=== PATIENT | male | born 1975 | race Caucasian/White ===

== ENCOUNTER 2022-10-22 02:45 | Emergency (ER) | payer OTHER, SELFPAY ==
[2022-10-22] VITALS (14 sets, daily range): BP systolic 137–155; BP diastolic 69–80; PULSE 50–55; RESP 16; TEMP 35.6; O2SAT 93–97
--- NOTE | 2022-10-22 03:15 | CRLHL7_ITS ---
For Patients: As a result of the Cures Act, medical imaging exams and procedure reports are released immediately into your electronic medical record. You may view this report before your referring provider. If you have questions, please contact your health care provider. Indication: Palpitations Technique: View chest Comparison: None Findings/Impression: The lung apices are excluded from the study on the basis of patient positioning. Status post median sternotomy with cardiac valve replacement. Cardiomegaly. No focal infiltrate or effusion. No large pneumothorax. Increased kyphosis of the thoracic spine. Recommend additional frontal radiograph to include the lung apices. Apices. Dictated by Radha Lea MD @ 10/22/2022 4:21:16 AM (Electronically Signed)
[2022-10-22 03:31] LABS: Basophils Absolute Auto 0.05 K/uL (0.00-0.30); Basophils Percent Auto 0.7 % (0.0-3.0); Eosinophils Percent Auto 8.2 % (0.0-7.0); Hematocrit 40.1 % (37.0-53.0); Hemoglobin* 13.7 gm/dL (13.5-17.5); Immature Granulocytes Abs Auto 0.03 K/uL (0.00-0.30); Immature Granulocytes Pct Auto 0.4 %; Lymphocytes Absolute Auto 2.29 K/uL (0.90-2.90); Lymphocytes Percent Auto 33.4 % (20-44); Mean Corpuscular HGB Conc 34 gm/dL (32-36); Mean Corpuscular Hemoglobin 30 pg (26-34); Mean Corpuscular Volume 87 fL (80-100); Neutrophils Absolute Auto 3.37 K/uL (1.7-7.0); Neutrophils Percent Auto 49.3 % (42.0-72.0); Platelet Count* 269 K/uL (140-440); RDW Coefficient of Variation % 11.8 % (11.5-15.5); White Blood Count* 6.85 K/uL (4.50-11.00)
[2022-10-22 03:35] LABS: Slide Review Reflex No
[2022-10-22] MEDS: clonazePAM 0.5 MG TABLET PO (03:37)
--- NOTE | 2022-10-22 03:41 | ED_ITS ---
HPI - General Adult General Chief complaint: Anxiety Stated complaint: heart palpitations Time Seen by Provider: 10/22/22 02:50 Source: patient and family Mode of arrival: ambulatory Limitations: no limitations History of Present Illness HPI narrative: 47-year-old male with notable history of Marfan syndrome presents to the emergency department with palpitations and anxiety. No chest pain, no shortness of breath, no presyncope or dizziness. Patient has been struggling with anxiety for the past few months, specifically after about spring break which is early August. He has been diagnosed with an anxiety disorder in the past and it sounds like he was taking sertraline for a few months last year but reports that it seemed to cause increased anxiety, admittedly he did not follow up regularly with a trauma manager for this. When his symptoms started worsening, he attempted to be seen in the [facility] Emergency Department. Unfortunately was exceptionally busy that day and they did leave without being seen after about 6 hours. They were able to get a hold of [facility] and were connected for outpatient counseling which he started just a few days later and continues to attend. He was also prescribed a limited supply of lorazepam, stating that he ran out of this about a week and half ago. He gets symptoms of panic attacks probably about twice a week, always at night, typically waking him from sleep. Does have some anxiety during the day but no debilitating panic type symptoms. Denies intoxication, denies suicidal intent. Because of his significant cardiac history, he does worry that the palpitations could be tied to something medically but his overall impression is that this is related to mental health issues. His is present and helps fill in small gaps in his story for me. I know this couple from high school activities with our children. No fever or recent illness, no trauma. He has a history of aortic arch repair back in 2009. He had aortic valve replacement and revision of the ascending aortic graft as well as an additional graft to the descending aorta in 2020. Has had no significant cardiac issues since then. He describes as palpitations as a irregular heart rate feeling, no skipped beats, no tachycardia. He has not noted paroxysmal nocturnal dyspnea or swelling in his legs. 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 He also has a history of temporal lobe seizures and is on treatment for this. He is able to list is home medications and doses easily. He takes oxcarbazepine, Keppra, losartan, aspirin 81 once daily, Coumadin, atenolol 75 mg once daily which was recently increased. Surgical history notable for the cardiac procedures as above. Social history reviewed. Some increased social stressors from sun graduating and busy schedule with other children. ROS is notable for the anxiety and cardiac symptoms as above, otherwise denies times 12 systems. Related Data Previous Rx's Medication Instructions Recorded clonazepam 0.5 mg tablet 0.25 - 0.5 mg (0.5 - 1 x 0.5 mg) 10/22/22 PO QHS #30 tabs Allergies Allergy/AdvReac Type Severity Reaction Status Date / Time ketamine Allergy Intermediate Verified 10/22/22 03:21 [facility] Medical History (Updated 10/22/22 @ 04:35 by Brigid Bernabe MD) Marfan syndrome ?Q87.40 - Marfan's syndrome, unspecified (ICD-10) Surgical History (Updated 10/22/22 @ 03:48 by Brigid Bernabe MD) Aortic valve replaced ?Z95.2 - Presence of prosthetic heart valve (ICD-10) Social History Smoking Status: Never smoker Do you use any of these nicotine containing products: None How often do you have a drink containing alcohol: 2-4 times a month How many standard drinks containing alcohol do you have on a typical day: 1 or 2 How often do you have six or more drinks on one occasion: Never AUDIT-C Alcohol total score: 2 Non-prescribed substance use: denies use service: No Exam Const: Vital Signs, click to edit/add: Vital Signs - 24 hr 10/22/22 02:51 10/22/22 03:05 10/22/22 03:06 Temperature 96.0 F L Pulse Rate 55 L 52 L Pulse Rate [Right Pulse Oximeter] 52 L Respiratory Rate 16 Blood Pressure 151/77 H Blood Pressure [Le ft Upper Arm] 146/80 H Pulse Oximetry 97 97 95 Oxygen Delivery Me thod Room Air 10/22/22 03:20 10/22/22 03:22 10/22/22 03:40 Temperature Pulse Rate 51 L 50 L 51 L Pulse Rate [Right Pulse Oximeter] Respiratory Rate Blood Pressure 137/69 Blood Pressure [Le ft Upper Arm] Pulse Oximetry 96 96 96 Oxygen Delivery Me thod 10/22/22 03:41 Temperature Pulse Rate 50 L Pulse Rate [Right Pulse Oximeter] Respiratory Rate Blood Pressure 155/78 H Blood Pressure [Le ft Upper Arm] Pulse Oximetry 95 Oxygen Delivery Mo thod Documenting provider has reviewed patient's vital signs: yes Common normals: no apparent distress and oriented x3 General appearance: cooperative, comfortable and well kempt Other: Mildly anxious but answers questions appropriately. HENMT: Common normals: normocephalic and head/scalp atraumatic Head and scalp: normocephalic and atraumatic Mouth: oral and palatal mucosa normal Eye: Common normals: conjunctivae normal General eye: normal appearance of both eyes Conjunctiva: conjunctiva(e) normal Neck & C-Spine: Common normals: no lymphadenopathy and thyroid normal Thyroid: thyroid normal Resp: Common normals: normal respiratory effort, no use of accessory muscles and clear to auscultation bilaterally Effort & inspection: able to speak in complete sentences Auscultation: clear to auscultation bilaterally Cardio: Common normals: regular rate, regular rhythm, S1 normal heart sound, S2 normal heart sound and no murmurs Rate: regular rate Rhythm: regular rhythm Heart sounds: S1 normal and S2 normal GI: Common normals: Normal to inspection, nondistended, normoactive bowel sounds present, soft to palpation, no hepatosplenomegaly and no masses Palpation: soft and no hepatosplenomegaly Neuro: Common normals: oriented x3, moves all extremities and no focal motor deficits Speech: speech normal Motor exam: no tremor noted Psych: Appearance: well kempt Mood and affect: anxious Insight: insight good Judgement: judgment good Skin: Common normals: no rashes or lesions noted Narrative: No signs of self-injury or trauma General skin exam: no rashes or lesions noted Course Course Hospital Course: Some concern for underlying cardiac complication. Recommended EKG, basic labs and chest x-ray. Suspect long-term anxiety disorder, now out of his lorazepam with no way to manage overnight panic attacks. Since he is having these twice weekly, I think he may actually benefit from preventative rather than on demand treatment. I did discuss clonazepam, low-dose at bedtime. We will do a trial dose here while we await labs including thyroid. If he tolerates this well I am willing to give a month supply while he arranges follow-up with a long-term medication provider. Reevaluation(s) Time of Reevaluation #1: 04:35 Reevaluation #1: Patient feeling better after class a Ne with no adverse side effects. Blood pressures remained stable. All normal lab findings and essentially stable chest x-ray reviewed with patient, do not recommend further workup. Recommended a trial of nightly clonazepam since he is having panic at least twice weekly. He will need to make a follow-up appointment with his primary care provider in a few weeks to see how this is going and to determine if this is appropriate for him long-term or if he should try alternatives. Counseled on alarm symptoms. He will continue all of his current cardiac medications and continue with therapy. Vital Signs Vital signs: Initial Vital Signs Temperature 96.0 F L 10/22/22 02:51 Temperature Source Temporal Artery Scan 10/22/22 02:51 Pulse Rate 52 L 10/22/22 02:51 Pulse Rhythm Regular 10/22/22 02:51 Respiratory Rate 16 10/22/22 02:51 Blood Pressure 146/80 H 10/22/22 02:51 Blood Pressure Mean 102 10/22/22 02:51 Blood Pressure Position Semi-Fowlers 10/22/22 02:51 Pulse Oximetry 97 10/22/22 02:51 Oxygen Delivery Method Room Air 10/22/22 02:51 Vital Signs Temperature 96.0 F L 10/22/22 02:51 Pulse Rate 52 L 10/22/22 02:51 Respiratory Rate 16 10/22/22 02:51 Blood Pressure 146/80 H 10/22/22 02:51 Pulse Oximetry 97 10/22/22 02:51 Oxygen Delivery Method Room Air 10/22/22 02:51 Temperature 96.0 F L 10/22/22 02:51 Pulse Rate 50 L 10/22/22 03:41 Respiratory Rate 16 10/22/22 02:51 Blood Pressure 155/78 H 10/22/22 03:41 Pulse Oximetry 95 10/22/22 03:41 Oxygen Delivery Method Room Air 10/22/22 02:51 Medical Decision Making Lab Data Lab results reviewed: Yes I reviewed the patient's lab results Lab results narrative: Reassuring. Suspect that the mild hyponatremia is chronic and related to seizure meds. Labs: Lab Results 06/14/23 06/14/23 Range/Units 03:15 03:25 WBC 6.85 (4.50-11.00) K/uL RBC 4.60 (4.30-5.90) m/uL Hgb 13.7 (13.5-17.5) gm/dL Hct 40.1 (37.0-53.0) % MCV 87 (80-100) fL MCH 30 (26-34) pg MCHC 34 (32-36) gm/dL RDW Coeff of Kym 11.8 (11.5-15.5) % Plt Count 269 (140-440) K/uL Neut % (Auto) 49.3 (42.0-72.0) % Lymph % (Auto) 33.4 (20-44) % [place] % (Auto) 8.0 (0.0-11.0) % Eos % (Auto) 8.2 H (0.0-7.0) % Baso % (Auto) 0.7 (0.0-3.0) % Neut # (Auto) 3.37 (1.7-7.0) K/uL Lymph # (Auto) 2.29 (0.90-2.90) K/uL [place] # (Auto) 0.50 (0.00-0.90) K/UL Eos # (Auto) 0.60 H (0.00-0.50) K/uL Baso # (Auto) 0.05 (0.00-0.30) K/uL Sodium 131 L (135-149) mmol/L Potassium 3.7 (3.6-5.1) mmol/L Chloride 98 (96-114) mmol/L Carbon Dioxide 26 (20-32) mmol/L BUN 17 (5-24) mg/dL Creatinine 0.7 (0.5-1.5) mg/dL Estimated GFR 114 ml/min Glucose 94 (60-115) mg/dL Calcium 8.9 (8.4-10.6) mg/dL Magnesium 2.2 (1.5-2.6) mg/dL TSH 1.950 (0.270-4.200) uIU/mL POC Troponin I 0.01 (0.01-0.04) ng/ml Imaging Data Chest x-ray: Attestation: I have reviewed the pertinent imaging results. My impression: Postsurgical changes but no obvious heart failure, pleural effusion or infiltrate Radiologist's impression: Findings/Impression: The lung apices are excluded from the study on the basis of patient positioning. Status post median sternotomy with cardiac valve replacement. Cardiomegaly. No focal infiltrate or effusion. No large pneumothorax. Increased kyphosis of the thoracic spine. Recommend additional frontal radiograph to include the lung apices. Apices. Discharge Plan Discharge Clinical Impression: Acute anxiety Patient Disposition: Home w/ Parent or Adult Condition: Improved Instructions: Panic Disorder (ED) Additional Instructions: As we discussed, medically things look great today. I do not see any complications with her heart. Your sodium levels are just a touch low which is very common for people on your seizure medications, no treatment is needed at this time. This does not correlate with your symptoms. I would recommend that we try a low-dose antianxiety medication at night that you can use more consistently. I will prescribe you clonazepam. Start with a half of a tablet at bedtime each night. You have permission to increase to 1 full tablet if needed. Plan on using this as a preventative medication rather than taking it on demand for panic. The supply will last use several weeks but you will need to make a follow-up with a primary care doctor in 4-6 weeks to recheck things and determine if you should stay on the medicine more long-term or if an alternative is better for you. Keep attending therapy as you are doing. Keep all of your cardiac medications the same for now. After a couple of weeks of good consistent sleep and less anxiety, check in with her blood pressure. If it is still not at goal, communicate plan of care with your cardiology team. Activity Level: No Restrictions Discharge Diet: Regular Prescriptions: New clonazepam 0.5 mg tablet 0.25 - 0.5 mg PO QHS Qty: 30 0RF Rx Instructions: administer 30 minutes before bedtime Follow Up/Referrals: Supa Wall MD [Primary Care Provider] - Stand Alone Forms: [employer] ([employer]) Info Instructions
[2022-10-22 03:42] LABS: Troponin, Point-of-Care* 0.01 ng/ml (0.01-0.04)
[2022-10-22 03:42] LABS: Chloride* 98 mmol/L (96-114); Potassium* 3.7 mmol/L (3.6-5.1); Sodium* 131 mmol/L (135-149)
[2022-10-22 03:45] LABS: Carbon Dioxide* 26 mmol/L (20-32); Creatinine* 0.7 mg/dL (0.5-1.5); Estimated Glomerular Filt Rate 114 ml/min
[2022-10-22 03:46] LABS: Blood Urea Nitrogen* 17 mg/dL (5-24); Calcium* 8.9 mg/dL (8.4-10.6); Glucose* 94 mg/dL (60-115); Magnesium* 2.2 mg/dL (1.5-2.6)
== END 2022-10-22 05:03 | disposition home or self-care (01) ==
PROVIDERS: Emergency Provider Family Medicine; PCP Family Medicine
DX: F41.9 Anxiety disorder, unspecified (principal)
CPT/HCPCS: 36415; 71046; 80048; 83735; 84443; 84484; 85025; 93005; 99283; 99284; A9270

== ENCOUNTER 2023-04-09 20:16 | Outpatient (CLI) | payer OTHER, SELFPAY | END 2023-04-09 20:17 | disposition home or self-care (01) | PROVIDERS: PCP Family Medicine; Visit Provider Nurse Practitioner | DX: G47.33 Obstructive sleep apnea (adult) (pediatric) (principal) | CPT/HCPCS: 95811 ==

== ENCOUNTER 2023-06-25 07:49 | Outpatient (CLI) | payer OTHER, SELFPAY | END 2023-06-25 07:50 | disposition home or self-care (01) | PROVIDERS: PCP Family Medicine; Referring Provider Family Medicine; Visit Provider Internal Medicine Nephrology | DX: I10 Essential (primary) hypertension (principal) | CPT/HCPCS: 80048 ==

== ENCOUNTER 2024-07-28 15:00 | Outpatient (CLI) | payer OTHER, SELFPAY | END 2024-07-28 15:01 | disposition home or self-care (01) | LOC: NFLDREF 07-30 23:09 | PROVIDERS: PCP Family Medicine; Referring Provider Family Medicine; Visit Provider Internal Medicine Nephrology | DX: I10 Essential (primary) hypertension (principal) | CPT/HCPCS: 80048 ==

== ENCOUNTER 2024-08-11 14:32 | Outpatient (CLI) | payer OTHER, SELFPAY | END 2024-08-11 14:33 | disposition home or self-care (01) | LOC: NFLDREF 08-14 08:37 | PROVIDERS: PCP Family Medicine; Referring Provider Family Medicine; Visit Provider Internal Medicine Nephrology | DX: I10 Essential (primary) hypertension (principal) | CPT/HCPCS: 80048; 82565; 82610 ==

== ENCOUNTER 2024-09-06 14:32 | Outpatient (CLI) | payer OTHER, SELFPAY | END 2024-09-06 14:33 | disposition home or self-care (01) | LOC: NFLDREF 09-10 02:43 | PROVIDERS: PCP Family Medicine; Referring Provider Family Medicine; Visit Provider Internal Medicine Nephrology | DX: I10 Essential (primary) hypertension (principal) | CPT/HCPCS: 80048 ==